=== PATIENT | female | born 1980 | race Caucasian/White ===

== ENCOUNTER 2024-10-04 13:55 | Emergency (ER) | payer SELFPAY ==
[~2024-10-04] VITALS: Ht 162.6 cm; Wt 77.0 kg
[2024-10-04 14:00] VITALS: BP 154/83; PULSE 106; RESP 18; TEMP 37.1; O2SAT 97
== END 2024-10-04 14:40 | disposition left against medical advice (07) ==
LOC: ER 13:55
DX: R41.82 Altered mental status, unspecified (principal); Z53.21 Procedure and treatment not carried out due to patient leaving prior to being seen by health care provider
CPT/HCPCS: 82962